=== PATIENT | male | born 2000 | race Caucasian/White ===

== ENCOUNTER 2020-05-30 00:26 | Emergency (ER) | payer BC, OTHER ==
[~2020-05-30 00:26] MED LIST: ZOFRAN ODT 4 MG4 MG PO
== END 2020-05-30 00:58 | disposition left against medical advice (07) ==
LOC: ER1 00:26
DX: R06.02 Shortness of breath (principal); R10.9 Unspecified abdominal pain; R11.0 Nausea; R51.9 Headache, unspecified; Z53.21 Procedure and treatment not carried out due to patient leaving prior to being seen by health care provider
CPT/HCPCS: 93005

== ENCOUNTER → 2020-08-18 | Outpatient (CLI) | payer BC, OTHER | LOC: KOH-I 16:30 | DX: J32.9 Chronic sinusitis, unspecified (principal) | CPT/HCPCS: 70486 ==